=== PATIENT | female | born 1955 | race Caucasian/White ===

== ENCOUNTER 2018-10-07 14:12 | Emergency (ER) | payer MEDICARE, MEDICAID ==
[~2018-10-07] VITALS: Ht 167.6 cm; Wt 58.6 kg
[~2018-10-07 14:12] MED LIST: ACYC-114 PO; ADAL40PE2 SQ; ESTR0.3T PO; HYDR-3241 PO
[2018-10-07 14:14] VITALS: BP 164/81
[2018-10-07] MEDS ORDERED: ONDANSETRON ODT 4 MG PO ONE (14:30)
[2018-10-07 14:40] LABS: RED BLOOD COUNT 4.52 x10^6/uL (3.82-5.3)
[2018-10-07 14:41] LABS: BASOPHILS % (AUTO) 0 % (0-1); EOSINOPHILS % (AUTO) 2 % (1-7); LYMPHOCYTES # (AUTO) 2.05 x10^3/uL (1-3.4); LYMPHOCYTES % (AUTO) 17 % (22-44); MEAN CORPUSCULAR HEMOGLOBIN 30.7 pg (27.0-34.8); MEAN CORPUSCULAR HGB CONC 33.5 g/dL (32.4-35.8); MEAN CORPUSCULAR VOLUME 91.7 fL (80-100); MEAN PLATELET VOLUME 8.1 fL (7.4-10.4); MONOCYTES # (AUTO) 0.69 x10^3/uL (0.2-0.8); NEUTROPHILS % (AUTO) 76 % (42-75); PLATELET COUNT 400 x10^3/uL (130-400); RED CELL DISTRIBUTION WIDTH 13.2 % (9.6-15.2)
[2018-10-07 14:42] LABS: BASOPHILS # (AUTO) 0.04 x10^3/uL (0-0.1); EOSINOPHILS # (AUTO) 0.21 x10^3/uL (0-0.4); MD NO
[2018-10-07 14:43] LABS: ALANINE AMINOTRANSFERASE 18 U/L (12-78); ALBUMIN 3.5 g/dL (3.4-5.0); ANION GAP 8 mmol/L (5-15); CALCIUM 8.7 mg/dL (8.5-10.1); CHLORIDE 104 mmol/L (98-107); CREATININE 0.78 mg/dL (0.55-1.02); MONOCYTES % (AUTO) 5 % (2-9)
[2018-10-07 14:45] LABS: ALKALINE PHOSPHATASE 103 U/L (45-117); BILIRUBIN,TOTAL 0.3 mg/dL (0.2-1.0)
[2018-10-07] MEDS ORDERED: MORPHINE SULFATE 4 MG/ML, 1ML ONE ×2 (15:48→17:14)
[2018-10-07] MEDS ORDERED: ONDANSETRON ODT 4 MG ONE (15:48)
[2018-10-07] MEDS ORDERED: SODIUM CHLORIDE 0.9% 1,000ML IVBOLUS ONE (16:00)
[2018-10-07] MEDS ORDERED: SODIUM CHLORIDE FLUSH 10ML SYR IVF ONE (16:00)
[2018-10-07] MEDS: MORPHINE SULFATE 4 MG/ML, 1ML IVPush PRN ×2 (16:14→17:15)
[2018-10-07 16:32] LABS: HCT (SEDRATE) 41.4 % (34.6-47.8)
[2018-10-07 16:42] LABS: MICROSCOPIC AUTO
[2018-10-07 16:52] LABS: CULTURE INDICATED? YES
[2018-10-07] MEDS ORDERED: methylPREDNISolone SOD SUCC 125 MG/2 ML IVPush ONE (17:00)
[2018-10-07] MEDS ORDERED: methylPREDNISolone SOD SUCC 125 MG/2 ML ONE (17:06)
[2018-10-07] MEDS ORDERED: MAALOX/HYOSCYAMINE/LIDOCAINE 45 ML BTL ONE (17:17)
[2018-10-07] MEDS ORDERED: MAALOX/HYOSCYAMINE/LIDOCAINE 45 ML BTL PO ONE (17:30)
== END 2018-10-07 17:38 | disposition home or self-care (01) ==
LOC: ED 17:05
DX: K50.00 Crohn's disease of small intestine without complications (principal); R10.32 Left lower quadrant pain; Z90.49 Acquired absence of other specified parts of digestive tract
CPT/HCPCS: 36415; 80053; 81001; 83690; 85025; 85651; 86140; 87086; 96374; 96375; 96376; 99283; J2930; J7030; Q0162

== ENCOUNTER 2021-07-30 11:09 | Emergency (ER) | payer MEDICARE, MEDICAID ==
[~2021-07-30] VITALS: Ht 165.1 cm; Wt 62.7 kg
[~2021-07-30 11:09] MED LIST changes: -ACYC-114 PO; +ACYC-40 PO
--- NOTE | 2021-07-30 13:13 | NUR ---
PT IN ROOM, UNABLE TO VOID YET FOR U/A. PT HAVING A HARD TIME GETTING COMFORTABLE DUE TO PAIN. PT CONNECTED TO ALL MONITORS.
[2021-07-30] MEDS ORDERED: ONDANSETRON 2MG/ML, 2ML ONE (13:17)
[2021-07-30] MEDS ORDERED: MORPHINE SULFATE 4 MG/ML, 1ML ONE ×2 (13:17→14:48)
[2021-07-30] MEDS ORDERED: SODIUM CHLORIDE FLUSH 10ML SYR IVF ONE (13:30)
[2021-07-30] MEDS ORDERED: ONDANSETRON 2MG/ML, 2ML IVPush ONE (13:30)
[2021-07-30] MEDS ORDERED: SODIUM CHLORIDE 0.9% 1,000ML IVBOLUS ONE (13:30)
[2021-07-30] MEDS: MORPHINE SULFATE 4 MG/ML, 1ML IVPush PRN ×2 (13:31→14:50)
[2021-07-30 13:58] LABS: ALANINE AMINOTRANSFERASE 29 U/L (12-78); ALBUMIN 4.4 g/dL (3.4-5.0); ANION GAP 9 mmol/L (5-15); CALCIUM 10.6 mg/dL (8.5-10.1); CHLORIDE 96 mmol/L (98-107); CREATININE 1.03 mg/dL (0.55-1.02)
[2021-07-30 14:00] LABS: ALKALINE PHOSPHATASE 78 U/L (45-117); BILIRUBIN,TOTAL 1.3 mg/dL (0.2-1.0); TOTAL PROTEIN 9.6 g/dL (6.4-8.2)
[2021-07-30 14:26] LABS: BASOPHILS % (AUTO) 0 % (0-1); EOSINOPHILS % (AUTO) 0 % (1-7); LYMPHOCYTES % (AUTO) 10 % (22-44); MEAN CORPUSCULAR HEMOGLOBIN 32.6 pg (27.0-34.8); MEAN CORPUSCULAR HGB CONC 35.1 g/dL (32.4-35.8); MEAN PLATELET VOLUME 7.1 fL (7.4-10.4); MONOCYTES % (AUTO) 8 % (2-9); NEUTROPHILS % (AUTO) 82 % (42-75); PLATELET COUNT 297 x10^3/uL (130-400); RED BLOOD COUNT 5.46 x10^6/uL (3.82-5.3); RED CELL DISTRIBUTION WIDTH 13.7 % (9.6-15.2)
[2021-07-30] MEDS ORDERED: OMNIPAQUE 350 MG/ML, 100ML BOTTLE ONE (14:38)
[2021-07-30 14:55] VITALS: BP 175/98
--- NOTE | 2021-07-30 14:55 | NUR ---
PT MEDICATED PER MAR, PT IV NOT RUNNING. REPOSITIONED PT AND IV IS RUNNING WELL. PT COMFORTABLE ON [place]
[2021-07-30 15:06] LABS: MICROSCOPIC AUTO
--- NOTE | 2021-07-30 16:50 | NUR ---
DC INSTRUCTIONS REVIEWED
== END 2021-07-30 16:51 | disposition home or self-care (01) ==
LOC: ED 15:19
DX: K50.10 Crohn's disease of large intestine without complications (principal); K52.9 Noninfective gastroenteritis and colitis, unspecified
CPT/HCPCS: 36415; 74177; 80053; 81001; 83690; 85025; 87086; 93005; 96361; 96374; 96375; 96376; 99285; J2270; J2405; J7030; Q9967